=== PATIENT | male | born 1975 | race Caucasian/White ===

== ENCOUNTER 2022-08-09 11:52 | Emergency (ER) | payer BC ==
--- NOTE | 2022-08-09 12:45 | ERPHSYRPT ---
- History of Present Illness Source: patient Exam Limitations: no limitations Patient Subjective Stated Complaint: Pt states that his right arm began to feel heavy last night and then when he woke up this morning he couldn't feel his right arm and couldn't lift it has a hard time thinking of his words and saying them Triage Nursing Assessment: Pt brought to the ER by his family, hypertensive, denies pain, pt states that he had this issue last month and it went away but it wasn't as severe and he did not go to the hospital or doctor, pt has been off of his blood pressure medicines for the past 2 weeks due to the changing of jobs and waiting for his insurance to kick in, pts right arm is weak but his right hand has no feeling and he can not control it at all, pt has problems getting his words correct and reading them correctly, he states that they look backwards to him sometimes (just today), pt has no defecits in his legs or the left arm, pt could not see out of his right side peripherials, pt has slight dizziness and slight headache Physician History: Onset last evening of right side weakness and slurred speech. He had similar s ymptoms last month, did not seek medical care. No hx of CVA. He does have hx HTN and he has been off med for a few weeks, cannot afford the med. Smoker. Time of Onset/Last Time Seen Normal: about 18 hours ago Timing/Duration: yesterday, constant Severity: moderate Character of Deficits: new weakness, altered sensation, impaired speech, Right Facial, RUE Deficits: off balance Baseline/Normal Cognition: alert oriented x 3 Current Cognition: alert oriented x 3 Baseline Gait: walks w/o assistance Associated Symptoms: denies symptoms Allergies/Adverse Reactions: No Known Drug Allergies Allergy (Verified 08/09/22 12:40) Home Medications: Losartan Potassium [Cozaar] 100 mg PO DAILY 08/09/22 [History] Hx Influenza Vaccination/Date Given: No Hx Pneumococcal Vaccination/Date Given: No Travel Risk - International Travel Have you traveled outside of the country in past 3 weeks: No - Coronavirus Screening Are you exhibiting any of the following symptoms?: No Close contact with a COVID-19 positive Pt in past 14-21 Days: No - Vaccine Status Have you recieved a Covid-19 vaccination: No - Review of Systems Constitutional: No Symptoms Eyes: No Symptoms Ears, Nose, & Throat: No Symptoms Respiratory: No Symptoms Cardiac: No Symptoms Abdominal/Gastrointestinal: No Symptoms Genitourinary Symptoms: No Symptoms Musculoskeletal: No Symptoms Skin: No Symptoms Neurological: No Symptoms Psychological: No Symptoms Endocrine: No Symptoms Hematologic/Lymphatic: No Symptoms All Other Systems: Reviewed and Negative - Past Medical History Pertinent Past Medical History: Yes Neurological History: No Pertinent History ENT History: No Pertinent History Cardiac History: Hypertension Respiratory History: No Pertinent History Endocrine Medical History: No Pertinent History Musculoskeletal History: No Pertinent History GI Medical History: No Pertinent History History: No Pertinent History Psycho-Social History: No Pertinent History Male Reproductive Disorders: No Pertinent History - Past Surgical History Past Surgical History: No Neuro Surgical History: No Pertinent History Cardiac: No Pertinent History Respiratory: No Pertinent History Gastrointestinal: No Pertinent History Genitourinary: No Pertinent History Musculoskeletal: No Pertinent History Male Surgical History: No Pertinent History - Social History Smoking Status: Current every day smoker Exposure to second hand smoke: Yes Drug Use: none Patient Lives Alone: No Significant Family History: heart disease, hypertension - Nursing Vital Signs Nursing Vital Signs: Initial Vital Signs Temperature 98.5 F 08/09/22 12:02 Pulse Rate 81 08/09/22 12:02 Respiratory Rate 13 08/09/22 12:02 Blood Pressure 172/104 08/09/22 12:02 O2 Sat by Pulse Oximetry 94 L 08/09/22 12:02 Pain Scale Pain Intensity 0 - Katie Coma Scale Best Eye Response (Katie): (4) open spontaneously Best Verbal Response (Aurelia): (5) oriented Best Motor Response (Katie): (6) obeys commands Katie Total: 15 - Physical Exam General Appearance: no apparent distress, obese Eye Exam: bilateral eye: normal inspection, PERRL, EOMI Ears, Nose, Throat Exam: normal ENT inspection Neck Exam: normal inspection, non-tender Respiratory: normal breath sounds, lungs clear Cardiovascular: regular rate/rhythm, normal heart sounds Gastrointestinal: soft, normal bowel sounds Rectal Exam: deferred Extremity Exam: normal inspection, normal range of motion Mental Status: alert, oriented x 3, 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 Exam: normal hearing, facial asymmetry, facial droop, facial paresthesias, facial weakness Coordination/Gait: normal gait Motor/Sensory: weak motor strength RUE Skin Exam: normal color, warm, dry SpO2 Interpretation: normal SpO2: 94 O2 Delivery: Room Air - Course Nursing assessment & vital signs reviewed: Yes EKG Interpreted by Me: RATE, Sinus Rhythm, NORMAL AXIS, NORMAL INTERVALS, NORMAL QRS, Non-specific ST Changes, Other (Reviewed the EKG with cigar head holer, senior telecommunications technician at [employer] [facility], sent him a picture of it, he says this does not represent acute ischemia, but possible prior ischemic changes in recent past.) - Radiology Exams Chest X-ray Interpretation: Interpreted by me, Negative - CT Exams Head CT Interpretation: Tele-radiologist Report, Other (Ischemic stroke in left MCA distribution. CTA head and neck - no vascular abnormals) Ordered Tests: Active Orders 24 hr Category Date Time Status EKG-ER Only STAT Care 08/09/22 12:47 Active CHEST 1 VIEW (PORTABLE) Stat Exams 08/09/22 13:[address] ANGIOGRAPHY NECK [CT] Routine Exams 08/09/22 14:41 Completed CTA HEAD W AND/OR WO CONTRAST [CT] Stat Exams 08/09/22 14:40 Completed HEAD WITHOUT CONTRAST [CT] Stat Exams 08/09/22 12:02 Completed CBC W DIFF Stat Lab 08/09/22 13:06 Completed CMP Stat Lab 08/09/22 13:06 Completed POCT GLUCOSE Stat Lab 08/09/22 13:49 Completed PROTIME WITH INR Stat Lab 08/09/22 13:06 Completed PTT Stat Lab 08/09/22 13:06 Completed UA W/RFX UR CULTURE Stat Lab 08/09/22 13:20 Completed Medication Summary Discontinued Medications Generic Name Dose Route Start Last Admin Trade Name Debbie PRN Reason Stop Dose Admin Clopidogrel Bisulfate 300 mg 08/09/22 14:11 08/09/22 14:15 Clopidogrel Bisulfate 75 Mg Tablet PO 08/09/22 14:12 300 mg STAT ONE Administration Clopidogrel Bisulfate Confirm 08/09/22 14:13 Clopidogrel Bisulfate 75 Mg Tablet Administered 08/09/22 14:14 Dose 300 mg .ROUTE .STK-MED ONE Lab/Rad Data: Laboratory Result Diagrams 08/09/22 13:06 08/09/22 13:06 Laboratory Results 08/09/22 08/09/22 08/09/22 Range/Units 13:49 13:20 13:06 WBC (4.0-10.5) x10^3/uL RBC (4.1-5.6) x10^6/uL Hgb (12.5-18.0) g/dL Hct (42-50) % MCV (78-100) fL MCH (26-32) pg MCHC (32-36) g/dL RDW (11.5-14.0) % Plt Count (150-450) x10^3/uL MPV (7.5-11.0) fL Gran % (36.0-66.0) % Immature Gran % (Auto) (0.00-0.4) % Nucleat RBC Rel Count (0.00-0.1) % Eos # (Auto) (0-0.5) x10^3/uL Immature Gran # (Auto) (0.00-0.03) x10^3u/L Absolute Lymphs (auto) (1.0-4.6) x10^3/uL Absolute Monos (auto) (0.0-1.3) x10^3/uL Absolute Nucleated RBC (0.00-0.01) x10^3u/L Lymphocytes % (24.0-44.0) % Monocytes % (0.0-12.0) % Eosinophils % (0.00-5.0) % Basophils % (0.0-0.4) % Absolute Granulocytes (1.4-6.9) x10^3/uL Basophils # (0-0.4) x10^3/uL PT 9.4 (9.4-12.5) SECONDS INR 0.85 (0.8-3.0) APTT 25.3 (25.1-36.5) SECONDS Sodium (137-145) mmol/L Potassium (3.5-5.1) mmol/L Chloride (98-107) mmol/L Carbon Dioxide (22-30) mmol/L Anion Gap (5-15) MEQ/L BUN (9-20) mg/dL Creatinine (0.66-1.25) mg/dL Estimated GFR ML/MIN Glucose (74-106) mg/dL POC Glucometer 231 H (74 to 106) mg/dL Calcium (8.4-10.2) mg/dL Total Bilirubin (0.2-1.3) mg/dL AST (17-59) U/L ALT (0-50) U/L Alkaline Phosphatase (38-126) U/L Serum Total Protein (6.3-8.2) g/dL Albumin (3.5-5.0) g/dL Urine Color Yellow (Yellow) Urine Appearance Clear (Clear) Urine pH 7.0 (4.6-8.0) Ur Specific [place] >=1.030 A (1.005-1.030) Urine Protein >=1000 A (Negative) Urine Glucose (UA) >=1000 A (Negative) mg/dL Urine Ketones Negative (Negative) Urine Blood Negative (Negative) Urine Nitrite Negative (Negative) Urine Bilirubin Negative (Negative) Urine Urobilinogen 0.2 (0.2) mg/dL Ur Leukocyte Esterase Negative (Negative) U Hyaline Cast (Auto) NONE SEEN (0-2) /LPF Urine Microscopic RBC 0-2 (0-5) /HPF Urine Microscopic WBC 0-2 (0-5) /HPF Ur Epithelial Cells None Seen (None Seen) /HPF Urine Bacteria None Seen (None Seen) /HPF Urine Culture Reflexed NO (NO) 08/09/22 08/09/22 Range/Units 13:06 13:06 WBC 8.2 (4.0-10.5) x10^3/uL RBC 5.57 (4.1-5.6) x10^6/uL Hgb 16.3 (12.5-18.0) g/dL Hct 48.3 (42-50) % MCV 86.7 (78-100) fL MCH 29.3 (26-32) pg MCHC 33.7 (32-36) g/dL RDW 12.5 (11.5-14.0) % Plt Count 194 (150-450) x10^3/uL MPV 9.3 (7.5-11.0) fL Gran % 61.8 (36.0-66.0) % Immature Gran % (Auto) 0.6 H (0.00-0.4) % Nucleat RBC Rel Count 0.0 (0.00-0.1) % Eos # (Auto) 0.15 (0-0.5) x10^3/uL Immature Gran # (Auto) 0.05 H (0.00-0.03) x10^3u/L Absolute Lymphs (auto) 2.34 (1.0-4.6) x10^3/uL Absolute Monos (auto) 0.54 (0.0-1.3) x10^3/uL Absolute Nucleated RBC 0.00 (0.00-0.01) x10^3u/L Lymphocytes % 28.5 (24.0-44.0) % Monocytes % 6.6 (0.0-12.0) % Eosinophils % 1.8 (0.00-5.0) % Basophils % 0.7 (0.0-0.4) % Absolute Granulocytes 5.08 (1.4-6.9) x10^3/uL Basophils # 0.06 (0-0.4) x10^3/uL PT (9.4-12.5) SECONDS INR (0.8-3.0) APTT (25.1-36.5) SECONDS Sodium 136 L (137-145) mmol/L Potassium 4.5 (3.5-5.1) mmol/L Chloride 104 (98-107) mmol/L Carbon Dioxide 27 (22-30) mmol/L Anion Gap 9.3 (5-15) MEQ/L BUN 16 (9-20) mg/dL Creatinine 0.66 (0.66-1.25) mg/dL Estimated GFR > 60.0 ML/MIN Glucose 243 H (74-106) mg/dL POC Glucometer (74 to 106) mg/dL Calcium 8.5 (8.4-10.2) mg/dL Total Bilirubin 0.30 (0.2-1.3) mg/dL AST 31 (17-59) U/L ALT 27 (0-50) U/L Alkaline Phosphatase 83 (38-126) U/L Serum Total Protein 7.3 (6.3-8.2) g/dL Albumin 3.7 (3.5-5.0) g/dL Urine Color (Yellow) Urine Appearance (Clear) Urine pH (4.6-8.0) Ur Specific [place] (1.005-1.030) Urine Protein (Negative) Urine Glucose (UA) (Negative) mg/dL Urine Ketones (Negative) Urine Blood (Negative) Urine Nitrite (Negative) Urine Bilirubin (Negative) Urine Urobilinogen (0.2) mg/dL Ur Leukocyte Esterase (Negative) U Hyaline Cast (Auto) (0-2) /LPF Urine Microscopic RBC (0-5) /HPF Urine Microscopic WBC (0-5) /HPF Ur Epithelial Cells (None Seen) /HPF Urine Bacteria (None Seen) /HPF Urine Culture Reflexed (NO) - Progress Progress: unchanged Progress Note: 08/09/22 17:25 Acute left brain ischemic (MCA) distribution stroke, right facial and arm weakness. CTA does not reveal any vascular abnormals. Teleneurologist advised us to give plavix 300 mg. Patient had taken ASA at home. Neurologist advised keep sys BP 160-180 range. Onset of sx outside of window for thrombolytics. NIHSS 6, patient recommended to be transferred to a tertiary center by the Regional hospitalist. He is accepted to go to the [facility] ER by Dr. Logan 08/09/22 20:18 Medical Desision Making - Independent Historian Additional History obtained from: Family - Discussion of managment Care discussed with:: specialist (Neurologist Dr. Logan) Reviewed:: Test results Agreed on:: need for follow-up Will see patient: in hospital - Diagnostic Testing Diagnostic test were ordered, analyzed, and reviewed by me: Yes Radiological Interpretation: Reviewed by me, Teleradiologist Report - Risk of complications Low Risk: Low risk of morbidity from additional dx testing or treatment - Departure Departure Disposition: Transfer Clinical Impression: Stroke Qualifiers: CVA mechanism: unspecified Qualified Code(s): I63.9 - Cerebral infarction, unspecified Condition: Stable Critical Care Time: Yes Critical Care Time(excluding separately billable procedures): Critical 30-74 mins Referrals: DOCTOR,NO FAMILY [Primary Care Provider] - Follow up/PCP as directed
--- NOTE | 2022-08-09 12:47 | XRAY ---
CLINICAL HISTORY:unable to move right arm. COMPARISON:None; TECHNIQUES:Axial non-contrast CT scan of the brain was performed from the skull base to the high parietal region. CTDI: 53.92, DLP:1016.25 mGy; FINDINGS: There is ill-defined diffuse hypodensity seen involving the left cerebral hemisphere predominantly the parietal occipital region with effacement of sulci and gyri and loss of abel-white matter differentiation. Imaging findings are suggestive of an ischemic stroke in left cerebral hemisphere in the territory of the left middle cerebral artery. Mild effacement of the ipsilateral lateral ventricle is seen. No midline shifts or deformity. No intracerebral or extra axial hematoma. Normal CT appearance of the posterior fossa structures namely the cerebellar hemispheres, brainstem and cerebellar peduncles. The IACs are unremarkable. The cerebellopontine angles are clear. The pituitary gland, the pineal gland, the optic chiasm is unremarkable. The osseous structures in the skull base are unremarkable. No definite calvarium fractures. The scanned paranasal sinuses are clear. IMPRESSION: 1. Imaging findings are suggestive of ischemic stroke in the left cerebral hemisphere, in the territory of the left middle cerebral artery. Would recommend MRI brain with DWI/ADC mapping, MRV, and clinical correlation for further evaluation. 2. No evidence of hemorrhage was seen. Electronically Signed by: Epi Love MD. (08/09/2022 11:40:34 STOCK PREPARER)
[2022-08-09 13:05] LABS: Absolute Neutrophil Ct (ANC) 5.08 x10^3/uL (1.4-6.9); BASOPHIL % 0.7 % (0.0-0.4); Basophil (Absolute #) 0.06 x10^3/uL (0-0.4); Eosinophil % 1.8 % (0.00-5.0); Eosinophil (Absolute #) 0.15 x10^3/uL (0-0.5); Hematocrit 48.3 % (42-50); Hemoglobin 16.3 g/dL (12.5-18.0); IMMATURE GRAN # 0.05 x10^3u/L (0.00-0.03); IMMATURE GRAN % 0.6 % (0.00-0.4); Lymphocyte (Absolute #) 2.34 x10^3/uL (1.0-4.6); Lymphocytes % 28.5 % (24.0-44.0); Mean Cell Volume 86.7 fL (78-100); Mean Corpuscular Hemoglobin 29.3 pg (26-32); Mean Corpuscular Hgb Concent. 33.7 g/dL (32-36); Mean Platelet Volume 9.3 fL (7.5-11.0); Monocyte (Absolute #) 0.54 x10^3/uL (0.0-1.3); Monocytes % 6.6 % (0.0-12.0); Neutrophil % 61.8 % (36.0-66.0); Platelet Count 194 x10^3/uL (150-450); Red Blood Count 5.57 x10^6/uL (4.1-5.6); Red Cell Distribution Width 12.5 % (11.5-14.0); White Blood Count 8.2 x10^3/uL (4.0-10.5)
[2022-08-09 13:28] LABS: ALBUMIN 3.7 g/dL (3.5-5.0); ALKALINE PHOSPHATASE 83 U/L (38-126); ANION GAP 9.3 MEQ/L (5-15); BLOOD UREA NITROGEN 16 mg/dL (9-20); CHLORIDE 104 mmol/L (98-107); Calcium 8.5 mg/dL (8.4-10.2); Carbon Dioxide 27 mmol/L (22-30); Creatinine 1 0.66 mg/dL (0.66-1.25); EST GLOMERULAR FILTRATION RATE > 60.0 ML/MIN; Glucose 243 mg/dL (74-106); Potassium 4.5 mmol/L (3.5-5.1); SGOT/AST 31 U/L (17-59); SGPT/ALT 27 U/L (0-50); SODIUM 136 mmol/L (137-145); Total Protein 7.3 g/dL (6.3-8.2)
[2022-08-09 13:29] LABS: INR 0.85 (0.8-3.0); PROTIME 9.4 SECONDS (9.4-12.5); PTT 25.3 SECONDS (25.1-36.5)
[2022-08-09 13:52] LABS: Appearance Clear (Clear); Bacteria None Seen /HPF (None Seen); Bilirubin Negative (Negative); Blood Negative (Negative); Epithelial Cells None Seen /HPF (None Seen); Glucose, Urine >=1000 mg/dL (Negative); Hyaline Casts NONE SEEN /LPF (0-2); Ketones Negative (Negative); Leukocyte Esterase Negative (Negative); Nitrite Negative (Negative); Protein,Urine Dip >=1000 (Negative); RBC 0-2 /HPF (0-5); Specific Gravity >=1.030 (1.005-1.030); Urobilinogen 0.2 mg/dL (0.2); WBC 0-2 /HPF (0-5)
[2022-08-09 13:56] LABS: ADD URINE CULTURE? NO (NO)
[2022-08-09] MEDS ORDERED: PLAVIX Tablet PO ONE (14:11)
[2022-08-09] MEDS ORDERED: PLAVIX Tablet ONE (14:13)
--- NOTE | 2022-08-09 16:07 | XRAY ---
CLINICAL HISTORY:STROKE COMPARISON:None; TECHNIQUES:CT angiography of neck performed with IV contrast along with coronal sagittal and 3-D reformatted image. CTDI: 31 mGy, DLP: 731 mGy*cm; FINDINGS: Common origin of right brachiocephalic trunk and left common carotid artery. Left subclavian artery originating normally as left-sided branch of aortic arch. Normal calibre of both common carotid arteries with no aneurysm, high-grade stenosis or AV malformation. Both external carotid arteries are normal in calibre with no no aneurysm, high-grade stenosis or AV malformation. Unremarkable both vertebral arteries. Unremarkable extra cranial course of bilateral internal carotid arteries. Incidentally noted few neck subcentimeter lymph nodes, non specific. Aortic arch appears unremarkable. IMPRESSION: Unremarkable CT angiography of neck with no high-grade stenosis, aneurysm or AV malformation detected. Electronically Signed by: Epi Love MD. (08/09/2022 15:00:51 COMPONENT ENGINEER)
--- NOTE | 2022-08-09 16:07 | XRAY ---
CLINICAL HISTORY:stroke COMPARISON:None; TECHNIQUES:CT angiography of intracranial vessels performed with intravenous contrast with coronal sagittal and 3D reformatted images. CTDI: 31 mGy, DLP: 731 mGy*cm; FINDINGS: In anterior circulation normal course and calibre of both supraclinoid internal carotid arteries with no high-grade stenosis, aneurysmal dilatation or AV malformation. Both anterior and middle cerebral arteries are of normal calibre with no high-grade stenosis, aneurysmal dilatation or AV malformation. Vessels of vertebrobasilar circulation normal calibre with no high-grade stenosis, aneurysmal dilatation or AV malformation. Normal filling of major venous channels with no signs of cerebral venous sinus thrombosis.. IMPRESSION: Unremarkable CT angiography of intracranial vessels with no high-grade stenosis, aneurysmal dilatation or AV malformation in vessels of anterior and posterior circulation. Electronically Signed by: Epi Love MD. (08/09/2022 15:02:44 [employer])
--- NOTE | 2022-08-09 19:39 | XRAY ---
Indication: Chest pain. Comparison: January 19, 2018 Portable apical lordotic chest remains inflated and clear. Heart and mediastinal structures within normal limits. Bony thorax intact again with minimal scoliosis. Impression: Continued nonacute chest.
[2022-08-09 20:08] VITALS: BP 162/113; PULSE 76
[2022-08-09 20:21] VITALS: O2SAT 94
== END 2022-08-09 20:55 | disposition short-term general hospital (02) ==
LOC: ED 11:52
DX: I63.9 Cerebral infarction, unspecified (principal); G81.91 Hemiplegia, unspecified affecting right dominant side; R47.81 Slurred speech; I10 Essential (primary) hypertension; Z79.899 Other long term (current) drug therapy; Z72.0 Tobacco use
CPT/HCPCS: 36415; 70450; 70496; 70498; 71045; 80053; 81001; 82947; 85025; 85610; 85730; 93005; 99285; 99291; A9270-GY

== ENCOUNTER 2024-04-10 06:07 | Observation (INO) | payer BC ==
[2024-04-10 06:51] LABS: Hematocrit 43.3 % (40.1-51.0); Mean Cell Volume 83.8 fL (79.0-92.2); Mean Corpuscular Hgb Concent. 34.6 g/dL (32.3-36.5); Mean Platelet Volume 9.4 fL (9.4-12.4); Platelet Count 255 x10^3/uL (163-337); Red Blood Count 5.17 x10^6/uL (4.63-6.08); Red Cell Distribution Width 12.1 % (11.6-14.4)
[2024-04-10 07:03] LABS: Appearance Clear (Clear); Bacteria None Seen /HPF (None Seen); Bilirubin Negative (Negative); Blood Negative (Negative); Epithelial Cells None Seen /HPF (None Seen); Glucose, Urine >=1000 mg/dL (Negative); Hyaline Casts NONE SEEN /LPF (0-2); Ketones Negative (Negative); Leukocyte Esterase Negative (Negative); Nitrite Negative (Negative); Ph 6.5 (4.6-8.0); Protein,Urine Dip 100 (Negative); RBC 0-2 /HPF (0-5); Specific Gravity >=1.030 (1.005-1.030); Urobilinogen 0.2 mg/dL (0.2); WBC 0-2 /HPF (0-5)
[2024-04-10 07:20] LABS: ALBUMIN 4.2 g/dL (3.5-5.0); ANION GAP 13.4 MEQ/L (5-15); BILIRUBIN,TOTAL 0.4 mg/dL (0.2-1.3); Creatinine 1 0.81 mg/dL (0.66-1.25); EST GLOMERULAR FILTRATION RATE 108.1 ML/MIN; MAGNESIUM 1.8 mg/dL (1.6-2.3); Potassium 4.4 mmol/L (3.5-5.1); Total Protein 7.7 g/dL (6.3-8.2)
--- NOTE | 2024-04-10 08:09 | ERPHSYRPT ---
- History of Present Illness Time Seen by Provider: 04/10/24 07:18 Source: patient Exam Limitations: no limitations Patient Subjective Stated Complaint: Around 3am, right hand started to tighten up and cramp then turned into a seizure that lasted aprox [address] ated she witnessed it. When he came out of his seizure, patient stated that he felt dizziness and light headed. Girlfriend stated that he was having some agonal breathing and was diaphorectic. Triage Nursing Assessment: Around 3am, right hand started to tighten up and cramp then turned into a seizure that lasted aprox 3 mins girlfriend stated she witnessed it. When he came out of his seizure, patient stated that he felt dizziness and light headed. Girlfriend stated that he was having some agonal breathing and was diaphorectic. Physician History: Patient is here for potential seizure-like activity. Girlfriend states that she woke up at 3 AM to him seizing. Patient had a right hand flexed towards him as well as a right elbow flexed towards him with full body tonic-clonic movements. When he came out of his seizure he was postictal. States that he felt dizzy and lightheaded. Girlfriend states that he was having agonal breathing and was diaphoretic. EMS was called. They did arrive on scene. Apparently patient did not want to go to the hospital. However since then he still states he feels "woozy". States he feels like his head is elevated. The room is not spinning, sounds more like lightheadedness than actual vertigo. Patient does not have a history of seizures. He does have a history of TIAs in 2019. He is only on 1 baby aspirin for this. He is not on dual therapy. Patient is taking PO well. Same number of urinations and defecations. The patient has no signs of altered mental status, nuchal rigidity, signs of meningitis. The patient is up-to-date on all vaccinations. Allergies/Adverse Reactions: No Known Drug Allergies Allergy (Verified 04/10/24 06:26) Home Medications: Lisinopril 20 mg [Zestril 20 MG] 20 mg PO DAILY 04/10/24 [History] Hx Tetanus, Diphtheria Vaccination/Date Given: No Hx Influenza Vaccination/Date Given: No Hx Pneumococcal Vaccination/Date Given: No Immunizations Up to Date: No Travel Risk - International Travel Have you traveled outside of the country in past 3 weeks: No - Emerging Infectious Disease Are you exhibiting symptoms associated with any current EIDs: No - Past Medical History Pertinent Past Medical History: Yes Neurological History: Seizures, Stroke ENT History: No Pertinent History Cardiac History: High Cholesterol, Hypertension Respiratory History: No Pertinent History Endocrine Medical History: Diabetes Type II Musculoskeletal History: No Pertinent History GI Medical History: No Pertinent History History: No Pertinent History Psycho-Social History: No Pertinent History Male Reproductive Disorders: No Pertinent History - Past Surgical History Past Surgical History: No Neuro Surgical History: No Pertinent History Cardiac: No Pertinent History Respiratory: No Pertinent History Gastrointestinal: No Pertinent History Genitourinary: No Pertinent History Musculoskeletal: No Pertinent History Male Surgical History: No Pertinent History Significant Family History: heart disease, hypertension - Social History Smoking Status: Current every day smoker How long have you smoked: 30 Exposure to second hand smoke: Yes Drug Use: none Patient Lives Alone: No - Social Determinants of Health Will the patient participate in the screening: Yes Do you worry about a steady place to live?: No Do you have any problems with any of the following?: No known problems In the past 12 months,have you had to go without utilities?: No Transportation Issues: No Has anyone in your support network made you feel unsafe?: No Have you or anyone in your house had to go without enough: No - Nursing Vital Signs Nursing Vital Signs: Initial Vital Signs Temperature 98.1 F 04/10/24 06:08 Pulse Rate 103 H 04/10/24 06:08 Respiratory Rate 20 04/10/24 06:08 Blood Pressure 143/83 04/10/24 06:08 O2 Sat by Pulse Oximetry 93 L 04/10/24 06:08 Pain Scale Pain Intensity 0 - Physical Exam SpO2 Interpretation: normal SpO2: 93 Comments: 04/10/24 08:08 Review of Systems Constitutional: Negative for fever. HENT: Negative for congestion. Respiratory: Negative for shortness of breath. Cardiovascular: Negative for chest pain. Gastrointestinal: Negative for abdominal pain. Genitourinary: Negative for dysuria. Musculoskeletal: Negative for back pain. Skin: Negative for rash. Neurological: Negative for headaches. Psychiatric/Behavioral: Negative for behavioral problems. All other systems reviewed and are negative. Physical Exam Vitals signs and nursing note reviewed. Constitutional: Appearance: Patient is well-developed. HENT: Head: Normocephalic and atraumatic. Eyes: Conjunctiva/sclera: Conjunctivae normal. Neck: Musculoskeletal: Normal range of motion. Trachea: No tracheal deviation. Cardiovascular: Rate and Rhythm: Normal rate. Pulmonary: Effort: Pulmonary effort is normal. No respiratory distress. Abdominal: Palpations: Abdomen is soft. Musculoskeletal: General: No deformity. Skin: General: Skin is warm and dry. Neurological/ Psychiatric: Mental Status: Mental status, behavior, interaction with environment is appropriate for patient's age and condition Motor: There is no pronator drift of out-stretched arms. Muscle bulk and tone a re normal. Strength is full bilaterally. Reflexes: Reflexes are 2+ and symmetric at the biceps, triceps, knees, and ankles. Plantar responses are flexor. Sensory: Light touch sense are intact in bilateral upper and lower extremities. There is no sign of neglect. Coordination: Rapid alternating movements are intact. There is no dysmetria on [id number] and [id number]. There are no abnormal or extraneous movements. Romberg is absent. Gait/Stance: Posture is normal, patient is ambultory without difficuly to bed - Course Nursing assessment & vital signs reviewed: Yes EKG Interpreted by Me: Sinus Rhythm (Sinus rhythm, rate of 94, LA interval 147, QRS 107, QTc is 420, no STEMI, mild ST elevation in V2 no reciprocal changes, half a millimeter) Ordered Tests: Active Orders 24 hr Category Date Time Status Call Admit Doctor for Orders ON ADMISSION Care 04/10/24 09:25 Active Code Status Order ROUTINE Care 04/10/24 09:25 Active EKG-ER Only STAT Care 04/10/24 06:[address] in Observation ROUTINE Care 04/10/24 09:25 Active Telemetry q6h Care 04/10/24 09:25 Active HEAD WITHOUT CONTRAST [CT] Stat Exams 04/10/24 07:19 Completed CBC Stat Lab 04/10/24 06:50 Completed CK-Creatinine Phosphokinase Stat Lab 04/10/24 06:50 Completed CMP Stat Lab 04/10/24 06:50 Completed MAGNESIUM Stat Lab 04/10/24 06:50 Completed TROPONIN Q4H Lab 04/10/24 06:50 Completed TROPONIN Q4H Lab 04/10/24 10:45 Ordered TROPONIN Q4H Lab 04/10/24 14:45 Ordered TROPONIN Q4H Lab 04/10/24 18:45 Ordered TROPONIN Q4H Lab 04/10/24 22:45 Ordered UA W/RFX UR CULTURE Stat Lab 04/10/24 06:45 Completed Lab/Rad Data: Laboratory Result Diagrams 04/10/24 06:50 04/10/24 06:50 Laboratory Results 04/10/24 04/10/24 04/10/24 Range/Units 06:50 06:50 06:50 WBC 14.0 H (4.23-9.07) x10^3/uL RBC 5.17 (4.63-6.08) x10^6/uL Hgb 15.0 (13.7-17.5) g/dL Hct 43.3 (40.1-51.0) % MCV 83.8 (79.0-92.2) fL MCH 29.0 (25.7-32.2) pg MCHC 34.6 (32.3-36.5) g/dL RDW 12.1 (11.6-14.4) % Plt Count 255 (163-337) x10^3/uL MPV 9.4 (9.4-12.4) fL Sodium 134 L (135-145) mmol/L Potassium 4.4 (3.5-5.1) mmol/L Chloride 101 (98-107) mmol/L Carbon Dioxide 24 (22-30) mmol/L Anion Gap 13.4 (5-15) MEQ/L BUN 14 (9-20) mg/dL Creatinine 0.81 (0.66-1.25) mg/dL Estimated GFR 108.1 ML/MIN Glucose 323 H (74-106) mg/dL Calcium 9.0 (8.4-10.2) mg/dL Magnesium 1.8 (1.6-2.3) mg/dL Total Bilirubin 0.40 (0.2-1.3) mg/dL AST 44 (17-59) U/L ALT 40 (0-50) U/L Alkaline Phosphatase 99 (38-126) U/L Creatine Kinase 771 H (55-170) U/L Troponin I < 0.012 (0.000-0.033) ng/mL Serum Total Protein 7.7 (6.3-8.2) g/dL Albumin 4.2 (3.5-5.0) g/dL Urine Color (Yellow) Urine Appearance (Clear) Urine pH (4.6-8.0) Ur Specific [place] (1.005-1.030) Urine Protein (Negative) Urine Glucose (UA) (Negative) mg/dL Urine Ketones (Negative) Urine Blood (Negative) Urine Nitrite (Negative) Urine Bilirubin (Negative) Urine Urobilinogen (0.2) mg/dL Ur Leukocyte Esterase (Negative) U Hyaline Cast (Auto) (0-2) /LPF Urine Microscopic RBC (0-5) /HPF Urine Microscopic WBC (0-5) /HPF Ur Epithelial Cells (None Seen) /HPF Urine Bacteria (None Seen) /HPF Urine Culture Reflexed (NO) 04/10/24 Range/Units 06:45 WBC (4.23-9.07) x10^3/uL RBC (4.63-6.08) x10^6/uL Hgb (13.7-17.5) g/dL Hct (40.1-51.0) % MCV (79.0-92.2) fL MCH (25.7-32.2) pg MCHC (32.3-36.5) g/dL RDW (11.6-14.4) % Plt Count (163-337) x10^3/uL MPV (9.4-12.4) fL Sodium (135-145) mmol/L Potassium (3.5-5.1) mmol/L Chloride (98-107) mmol/L Carbon Dioxide (22-30) mmol/L Anion Gap (5-15) MEQ/L BUN (9-20) mg/dL Creatinine (0.66-1.25) mg/dL Estimated GFR ML/MIN Glucose (74-106) mg/dL Calcium (8.4-10.2) mg/dL Magnesium (1.6-2.3) mg/dL Total Bilirubin (0.2-1.3) mg/dL AST (17-59) U/L ALT (0-50) U/L Alkaline Phosphatase (38-126) U/L Creatine Kinase (55-170) U/L Troponin I (0.000-0.033) ng/mL Serum Total Protein (6.3-8.2) g/dL Albumin (3.5-5.0) g/dL Urine Color Yellow (Yellow) Urine Appearance Clear (Clear) Urine pH 6.5 (4.6-8.0) Ur Specific [place] >=1.030 A (1.005-1.030) Urine Protein 100 A (Negative) Urine Glucose (UA) >=1000 A (Negative) mg/dL Urine Ketones Negative (Negative) Urine Blood Negative (Negative) Urine Nitrite Negative (Negative) Urine Bilirubin Negative (Negative) Urine Urobilinogen 0.2 (0.2) mg/dL Ur Leukocyte Esterase Negative (Negative) U Hyaline Cast (Auto) NONE SEEN (0-2) /LPF Urine Microscopic RBC 0-2 (0-5) /HPF Urine Microscopic WBC 0-2 (0-5) /HPF Ur Epithelial Cells None Seen (None Seen) /HPF Urine Bacteria None Seen (None Seen) /HPF Urine Culture Reflexed NO (NO) - Progress Progress: improved Progress Note: 04/10/24 08:09 Differential diagnosis includes seizure, head bleed, other infection, cardiac event, arrhythmia, NSTEMI, STEMI Will obtain basic labs, EKG, head CT, cardiac markers Patient likely needs to be admitted to hospital 04/10/24 09:[address] negative for acute stroke. Although, patient could benefit from MRI inpatient. First troponin negative, paper is hyperglycemic, history of diabetes. Overall, I do believe patient will need an MRI, echocardiogram, telemetry, neurology and cardiology consult. I did discuss with on-call hospitalist, Dr. Ramirez. He did agree with admission here. Patient's NIH score is 0., Outside of stroke window, I do not believe would benefit from tPA or other acute interventions. History is more in line with seizure or cardiac even t. Although stroke is not fully ruled out at this point. Especially with his history of stroke. Given all this, plan for admission, consults and interventions as above. Counseled pt/family regarding: lab results, diagnosis, need for follow-up, rad results, smoking cessation - Departure Departure Disposition: Observation Clinical Impression: Seizure-like activity, Diaphoresis, Hyperglycemia, Diabetes type 2 Condition: Stable Critical Care Time: No Referrals: WAYNE SHUKLA MD [Primary Care Provider] - Follow up/PCP as directed
--- NOTE | 2024-04-10 08:52 | XRAY ---
Indication: Seizure. History seizures. Multiple contiguous axial images obtained through the head without contrast. Comparison: August 09, 2022 Interval maturation previous left parietal and left occipital lobe infarcts. No acute intracranial hemorrhage, abnormal extra-axial fluid collection, or mass effect. Fourth ventricle is midline without hydrocephalus. Pena-white matter differential preserved. Bony calvarium intact. Visualized paranasal sinuses and mastoid air cells are clear. 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 No acute intracranial abnormalities.
--- NOTE | 2024-04-10 11:46 | PCM.HP ---
History of Present Illness - Chief Complaint Chief Complaint: seizure Date: 04/10/24 History of Present Illness: is a 48 year old male with PMHX of previous seizure x1 but never sought treatment, Hyperlipidemia, HTN, type II DM, and daily smoker. Patient is here for seizure-like activity. Girlfriend (whom is a nurse practitioner) states that she woke up at 3 AM to him seizing, lips turning blue, and foaming at the mouth. Patient had right hand flexed towards him as well as a right elbow flexed towards him with full body tonic-clonic movements. When he came out of his seizure he was postictal. States that he felt dizzy and lightheaded. Girlfriend states that he was having agonal breathing and was diaphoretic. EMS was called. They did arrive on scene. Apparently patient did not want to go to the hospital. However since then he still states he feels "woozy". States he feels like his head is elevated and floating sensation. The room is not spinning, sounds more like lightheadedness than actual vertigo. Patient reports a similar incidnet in January but did not seek treatment. He has no other history of seizures. He does have a history of TIAs in 2019. He is only on 1 baby aspirin for this. He is not on dual therapy. Patient is taking PO well. Same number of urinations and defecations. The patient has no signs of altered mental status, nuchal rigidity, signs of meningitis. The patient is up-to-date on all vaccinations. Neurology consulted. Head CT negative for acute stroke. MRI brain w/o contrast ordered. Echo and PT ordered. He has BLLE edema R>L. He states this is ongoing for 2 months. Venous duploex ordered. He has also been having significant leg cramps daily. Will keep pt overnight and monitor on Tele. He denies CP, SOB, abd. pain, N/V/D. - Review of Systems Constitutional: No Fever, No Chills Eyes: No Symptoms Ears, Nose, & Throat: No Symptoms Respiratory: No Cough, No Short Of Breath Cardiac: Edema (BLLE R>L), No Chest Pain, No Syncope Abdominal/Gastrointestinal: No Abdominal Pain, No Nausea, No Vomiting, No Diarrhea Genitourinary Symptoms: No Dysuria Musculoskeletal: No Back Pain, No Neck Pain Skin: No Rash Neurological: Seizure, No Dizziness, No Focal Weakness, No Sensory Changes Psychological: No Symptoms Endocrine: No Symptoms Hematologic/Lymphatic: No Symptoms Immunological/Allergic: No Symptoms Medications & Allergies Home Medications: Home Medication List Aspirin [Aspirin EC] 81 mg PO DAILY 04/10/24 [History Confirmed 04/10/24] Atorvastatin Calcium 80 mg PO HS 04/10/24 [History Confirmed 04/10/24] Lisinopril 20 mg [Zestril 20 MG] 20 mg PO DAILY 04/10/24 [History Confir med 04/10/24] Semaglutide [Ozempic] 0.25 mg SQ WEEKLY 04/10/24 [History Confirmed 04/10/24] Allergies/Adverse Reactions: Allergies Allergy/AdvReac Type Severity Reaction Status Date / Time No Known Drug Allergies Allergy Verified 04/10/24 06:26 - Past Medical History Past Medical History: Yes Neurological History: Seizures, Stroke ENT History: No Pertinent History Cardiac History: High Cholesterol, Hypertension Respiratory History: No Pertinent History Endocrine Medical History: Diabetes Type II Musculoskelatal History: No Pertinent History GI Medical History: No Pertinent History History: No Pertinent History Pyscho-Social History: No Pertinent History Male Reproductive Disorders: No Pertinent History Comment: ? seizures. questioning on having two recent. Mid January and last night - Past Surgical History Past Surgical History: No Neuro Surgical History: No Pertinent History Cardiac History: No Pertinent History Respiratory Surgery: No Pertinent History GI Surgical History: No Pertinent History Genitourinary Surgical Hx: No Pertinent History Musculskeletal Surgical Hx: No Pertinent History Male Surgical History: No Pertinent History Significant Family History: heart disease, hypertension - Social History Smoking Status: Current every day smoker How long have you smoked: 30 Exposure to second hand smoke: No Alcohol: None Drug Use: none - Social Determinants of Health Will the patient participate in the screening: Yes Do you worry about a steady place to live?: No Do you have any problems with any of the following?: No known problems In the past 12 months,have you had to go without utilities?: No Have you or anyone in your house had to go without enough: No Transportation Issues: No Has anyone in your support network made you feel unsafe?: No Does the patient want assistance with any of the above?: No - Physical Exam Vital Signs: Vital Signs - 24 hr Temp Pulse Resp BP BP BP Pulse Ox 04/10/24 10:00 96.8 F 103 H 18 136/80 92 L 04/10/24 09:50 95 H 18 116/79 94 L 04/10/24 09:49 93 L 04/10/24 09:40 95 04/10/24 09:37 94 L 04/10/24 09:20 95 04/10/24 09:10 96 04/10/24 09:00 95 04/10/24 08:50 93 L 04/10/24 08:40 95 04/10/24 08:30 94 L 04/10/24 07:33 62 16 127/68 94 L 04/10/24 07:11 62 18 129/81 96 04/10/24 06:30 145/87 04/10/24 06:08 98.1 F 103 H 20 143/83 93 L General Appearance: no apparent distress, alert, obese Neurologic Exam: alert, oriented x 3, cooperative, 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 tested, normal mood/affect, nml cerebellar function, nml station & gait, sensation nml, No motor deficits Eye Exam: PERRL/EOMI, eyes nml inspection Ears, Nose, Throat Exam: normal ENT inspection, TMs normal, pharynx normal, moist mucous membranes Neck Exam: normal inspection, non-tender, supple, full range of motion Respiratory Exam: normal breath sounds, lungs clear, No respiratory distress Cardiovascular Exam: regular rate/rhythm, normal heart sounds, normal peripheral pulses Gastrointestinal/Abdomen Exam: soft, normal bowel sounds, No tenderness, No mass Back Exam: normal inspection, normal range of motion, No CVA tenderness, No vertebral tenderness Extremity Exam: normal inspection, normal range of motion, pelvis stable Skin Exam: normal color, warm, dry, No rash Lymphatic Exam: No adenopathy Results - Labs Lab/Micro Results: Lab Results-Last 24 Hours 04/10/24 04/10/24 04/10/24 Range/Units 06:45 06:50 06:50 WBC 14.0 H (4.23-9.07) x10^3/uL RBC 5.17 (4.63-6.08) x10^6/uL Hgb 15.0 (13.7-17.5) g/dL Hct 43.3 (40.1-51.0) % MCV 83.8 (79.0-92.2) fL MCH 29.0 (25.7-32.2) pg MCHC 34.6 (32.3-36.5) g/dL RDW 12.1 (11.6-14.4) % Plt Count 255 (163-337) x10^3/uL MPV 9.4 (9.4-12.4) fL Sodium 134 L (135-145) mmol/L Potassium 4.4 (3.5-5.1) mmol/L Chloride 101 (98-107) mmol/L Carbon Dioxide 24 (22-30) mmol/L Anion Gap 13.4 (5-15) MEQ/L BUN 14 (9-20) mg/dL Creatinine 0.81 (0.66-1.25) mg/dL Estimated GFR 108.1 ML/MIN Glucose 323 H (74-106) mg/dL Calcium 9.0 (8.4-10.2) mg/dL Magnesium 1.8 (1.6-2.3) mg/dL Total Bilirubin 0.40 (0.2-1.3) mg/dL AST 44 (17-59) U/L ALT 40 (0-50) U/L Alkaline Phosphatase 99 (38-126) U/L Creatine Kinase 771 H (55-170) U/L Troponin I (0.000-0.033) ng/mL Serum Total Protein 7.7 (6.3-8.2) g/dL Albumin 4.2 (3.5-5.0) g/dL Urine Color Yellow (Yellow) Urine Appearance Clear (Clear) Urine pH 6.5 (4.6-8.0) Ur Specific [place] >=1.030 A (1.005-1.030) Urine Protein 100 A (Negative) Urine Glucose (UA) >=1000 A (Negative) mg/dL Urine Ketones Negative (Negative) Urine Blood Negative (Negative) Urine Nitrite Negative (Negative) Urine Bilirubin Negative (Negative) Urine Urobilinogen 0.2 (0.2) mg/dL Ur Leukocyte Esterase Negative (Negative) U Hyaline Cast (Auto) NONE SEEN (0-2) /LPF Urine Microscopic RBC 0-2 (0-5) /HPF Urine Microscopic WBC 0-2 (0-5) /HPF Ur Epithelial Cells None Seen (None Seen) /HPF Urine Bacteria None Seen (None Seen) /HPF Urine Culture Reflexed NO (NO) 04/10/24 Range/Units 06:50 WBC (4.23-9.07) x10^3/uL RBC (4.63-6.08) x10^6/uL Hgb (13.7-17.5) g/dL Hct (40.1-51.0) % MCV (79.0-92.2) fL MCH (25.7-32.2) pg MCHC (32.3-36.5) g/dL RDW (11.6-14.4) % Plt Count (163-337) x10^3/uL MPV (9.4-12.4) fL Sodium (135-145) mmol/L Potassium (3.5-5.1) mmol/L Chloride (98-107) mmol/L Carbon Dioxide (22-30) mmol/L Anion Gap (5-15) MEQ/L BUN (9-20) mg/dL Creatinine (0.66-1.25) mg/dL Estimated GFR ML/MIN Glucose (74-106) mg/dL Calcium (8.4-10.2) mg/dL Magnesium (1.6-2.3) mg/dL Total Bilirubin (0.2-1.3) mg/dL AST (17-59) U/L ALT (0-50) U/L Alkaline Phosphatase (38-126) U/L Creatine Kinase (55-170) U/L Troponin I < 0.012 (0.000-0.033) ng/mL Serum Total Protein (6.3-8.2) g/dL Albumin (3.5-5.0) g/dL Urine Color (Yellow) Urine Appearance (Clear) Urine pH (4.6-8.0) Ur Specific [place] (1.005-1.030) Urine Protein (Negative) Urine Glucose (UA) (Negative) mg/dL Urine Ketones (Negative) Urine Blood (Negative) Urine Nitrite (Negative) Urine Bilirubin (Negative) Urine Urobilinogen (0.2) mg/dL Ur Leukocyte Esterase (Negative) U Hyaline Cast (Auto) (0-2) /LPF Urine Microscopic RBC (0-5) /HPF Urine Microscopic WBC (0-5) /HPF Ur Epithelial Cells (None Seen) /HPF Urine Bacteria (None Seen) /HPF Urine Culture Reflexed (NO) - Radiology Impressions Radiology Exams & Impressions: Radiology Procedures Category Date Time Status ECHO W/2D AND DOPPLER [US] Routine Exams 04/10/24 10:23 Ordered HEAD WITHOUT CONTRAST [CT] Stat Exams 04/10/24 07:19 Completed MRI BRAIN W/O CONTRAST [MRI] Routine Exams 04/10/24 10:23 Ordered VENOUS BILATERAL EXTREMITY [US] Routine Exams 04/10/24 11:14 Ordered - Other Procedures and Tests Respiratory Therapy 04/10/24 10:53 Smoking Cessation Education ONCE Assessment/Plan (1) Seizure-like activity Current Visit: Yes Status: Acute Assessment & Plan: - CK 771- NS @ 75ml/hr - CT head: Impression: 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 No acute intracranial abnormalities. - Neurology consult - MRI brain w/o contrast - seizure precautions - tele - Neuro checks Q 4 - CBC, CMP reviewed - UDS - Echo - PT eval Code(s): R56.9 - UNSPECIFIED CONVULSIONS (2) Edema of both lower extremities Current Visit: Yes Status: Acute Assessment & Plan: - ongoing for 2 months per pt R> L - venous duplex BLLE Code(s): R60.0 - LOCALIZED EDEMA (3) HTN (hypertension) Current Visit: Yes Status: Chronic Assessment & Plan: - BP stable - continue lisinopril Code(s): I10 - ESSENTIAL (PRIMARY) HYPERTENSION (4) Hyperlipidemia Current Visit: Yes Status: Chronic Assessment & Plan: - Continue statin Code(s): E78.5 - HYPERLIPIDEMIA, UNSPECIFIED (5) Diabetes type 2 Current Visit: Yes Status: Chronic Assessment & Plan: - Humalog s/s - accuchecks ac/hs - A1C pending - carb consistent diet (6) Hyperglycemia Current Visit: Yes Status: Acute Assessment & Plan: - See above plan for type II DM Code(s): R73.9 - HYPERGLYCEMIA, UNSPECIFIED (7) History of TIA (transient ischemic attack) Current Visit: Yes Status: Chronic Assessment & Plan: - Continue statin and ASA Code(s): Z86.73 - PRSNL HX OF TIA (TIA), AND CEREB INFRC W/O RESID DEFICITS (8) Smoker Current Visit: Yes Status: Chronic Assessment & Plan: - advised cessation - nicotine patch Code(s): F17.200 - NICOTINE DEPENDENCE, UNSPECIFIED, UNCOMPLICATED (9) Obesity (BMI 30-39.9) Current Visit: Yes Status: Chronic Assessment & Plan: - advised ADA diet and exercise control VTE: Lovenox Next of KIN: Sibling- Jenn Nino [phone] D/C plan: tomorrow Code status: Full Code(s): E66.9 - OBESITY, UNSPECIFIED
[2024-04-10] MEDS: Nicoderm CQ 21 MG TOP SCH (12:35)
[2024-04-10] MEDS: Sodium Chloride 0.9% 1000 ML 1,000 ML IV SCH (12:35)
[2024-04-10] MEDS: Zestril 20 MG PO SCH (12:35)
[2024-04-10] MEDS: HUMALOG SQ PRN (12:40)
--- NOTE | 2024-04-10 14:18 | XRAY ---
Indication: Bilateral leg edema. Two-dimensional sonogram and color Doppler imaging major venous vessels left and right leg performed. Comparison: None Right leg demonstrates near occluding thrombi in popliteal vein. Lesser degree nonoccluding thrombi in mid to distal femoral vein. No thrombus seen in the remaining deep venous vessels left and right leg including greater saphenous vein. Patent veins demonstrate normal compressibility and normal venous waveforms. Impression: 1. Nonoccluding DVT right leg. 2. Left leg negative for DVT.
--- NOTE | 2024-04-10 14:54 | XRAY ---
Indication: TIA. Old left parietal/occipital lobe infarcts on same day CT head. Sagittal, coronal, and axial MRI brain performed without contrast using T1, T2, FLAIR, diffusion, and ADC sequences. Comparison: None Small focus of encephalomalacia left occipital lobe and lesser degree high left parietal with surrounding gliosis favoring remote infarcts. No acute intra-cranial hemorrhage, abnormal extra-axial fluid collection, or mass effect. Diffusion images negative for restricted signal. Fourth ventricle is midline without hydrocephalus. 7/8 cranial nerve complex bilaterally symmetric. Normal flow void signal within the major intracerebral circulation. Normal appearing craniocervical junction and sella turcica. Minimal mucosal thickening inferior left maxillary sinus. Impression: Small remote infarcts left parietal and left occipital lobes as reported on same-day CT exam. Minimal left maxillary sinus disease. Remaining MRI brain without contrast exam negative.
[2024-04-10] MEDS: ENOXAPARIN SODIUM SQ SCH (16:03)
[2024-04-10 17:00] LABS: Amphetamine,Urine NEGATIVE (NEGATIVE); Barbiturate,Urine NEGATIVE (NEGATIVE); Benzodiazepine,Urine NEGATIVE (NEGATIVE); Cocaine,Urine NEGATIVE (NEGATIVE); Methadone,Urine NEGATIVE (NEGATIVE); Opiate,Urine NEGATIVE (NEGATIVE); PCP,Urine NEGATIVE (NEGATIVE); THC,Urine NEGATIVE (NEGATIVE)
[2024-04-10] MEDS: ZOCOR 20MG PO SCH (22:33)
[2024-04-11 06:00] LABS: Hematocrit 48.4 % (40.1-51.0); Hemoglobin 15.9 g/dL (13.7-17.5); Mean Cell Volume 87.8 fL (79.0-92.2); Mean Corpuscular Hemoglobin 28.9 pg (25.7-32.2); Mean Corpuscular Hgb Concent. 32.9 g/dL (32.3-36.5); Mean Platelet Volume 9.8 fL (9.4-12.4); Platelet Count 270 x10^3/uL (163-337); Red Blood Count 5.51 x10^6/uL (4.63-6.08); Red Cell Distribution Width 12.3 % (11.6-14.4); White Blood Count 8.6 x10^3/uL (4.23-9.07)
[2024-04-11 07:18] LABS: ANION GAP 10.7 MEQ/L (5-15); BILIRUBIN,TOTAL 0.4 mg/dL (0.2-1.3); Calcium 9.3 mg/dL (8.4-10.2); Creatinine 1 0.97 mg/dL (0.66-1.25); EST GLOMERULAR FILTRATION RATE 95.7 ML/MIN; Potassium 4.5 mmol/L (3.5-5.1); Total Protein 7.5 g/dL (6.3-8.2)
[2024-04-11 08:06] VITALS: RESP 19; TEMP 97.6; O2SAT 97
--- NOTE | 2024-04-11 09:19 | PCM.CONS ---
History of Present Illness - Neuro Consultation Date of Consultation Date: 04/11/24 ED Arrival Date & Time: 04/10/24 06:07 Requesting Provider: Mavis Jackson NP Providers: Attending Provider: JACOB NGUYEN MD ED Provider: PATRIC PALOMO Consulting Provider: PORTILLO SOLIMAN DO Reason for Consult: Seizure cc:: The requesting physician will be sent a copy of the consult. Seizure - Chief Complaint Patient Subjective Stated Complaint: Seizure - History of Present Illness HPI: The patient is a 48M PMH stroke x2 mild right hand weakness residually, DM, HTN, HLD, tobacco use presents with seizure. In the middle of the night he had an episode where he woke up, his right arm was jerking for 20s, then he had LOC with GTC activity for minutes, afterwards was agonal breathing and somnolent for 20min per his partner. He woke up after but was confused. He had a similar episode in January, did not seen medical attention. No personal or FH seizures. No prior head trauma. He did have 2 strokes in the past few years, was told it was due to HTN, HLD but they never found a cause for embolism. Currently on ASA daily, no other blood thinner. MRI brain obtained showed chronic left parietal-occipital stroke. US of legs showed right leg DVT x2. Now on Lovenox treatment dose. No hx blood clots, of FH clotting disorders. Also denies any daily alcohol use, recent infections, poor sleep. 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 Location: Brain Quality: Seizure Severity: Severe Timing: Intermittent Duration: 30min Modifying: none Associated symptoms: somnolent, confusion Context: chronic left embolic stroke Known stroke risk factors:: Hypertension, Dyslipidemia Review of Systems - Review of Systems Review of Systems (Narrative): Constitutional: No fever/chills, no weight loss/gain Eyes: No double vision ENT: No hearing loss/tinnitus, no nasal congestion Cardiovascular: No chest pain, no palpitations Respiratory: No shortness of breath, no cough Gastrointestinal: No nausea/vomiting, no diarrhea Genitourinary: No urinary incontinence, no urinary difficulty Musculoskeletal: no neck pain, no muscle cramps Skin: No rashes, no abrasions Neurological: no numbness, no weakness Psychiatric: No depression, no anxiety Endocrine: No heat or cold intolerance, no change in appetite Hematologic/Lymphatic: No easy bruising, no anemia Allergic/Immunologic: No allergic response to food, no swollen lymph nodes - Past Medical History Past Medical History: Yes Neurological History: Seizures, Stroke ENT History: No Pertinent History Cardiac History: High Cholesterol, Hypertension Respiratory History: No Pertinent History Endocrine Medical History: Diabetes Type II Musculoskelatal History: No Pertinent History GI Medical History: No Pertinent History History: No Pertinent History Pyscho-Social History: No Pertinent History Male Reproductive Disorders: No Pertinent History Comment: ? seizures. questioning on having two recent. Mid January and last night - Past Surgical History Past Surgical History: No Neuro Surgical History: No Pertinent History Cardiac History: No Pertinent History Respiratory Surgery: No Pertinent History GI Surgical History: No Pertinent History Genitourinary Surgical Hx: No Pertinent History Musculskeletal Surgical Hx: No Pertinent History Male Surgical History: No Pertinent History Significant Family History: heart disease, hypertension - Social History Smoking Status: Current every day smoker How long have you smoked: 30 Exposure to second hand smoke: No Alcohol: None Drug Use: none - Social Determinants of Health Will the patient participate in the screening: Yes Do you worry about a steady place to live?: No Do you have any problems with any of the following?: No known problems In the past 12 months,have you had to go without utilities?: No Have you or anyone in your house had to go without enough: No Transportation Issues: No Has anyone in your support network made you feel unsafe?: No Does the patient want assistance with any of the above?: No Physical Exam - Vital Signs Vital Signs: Vital Signs - 24 hr 04/10/24 04/10/24 04/10/24 09:20 09:37 09:40 Temperature Pulse Rate Respiratory Rate Blood Pressure Blood Pressure [Right Arm] O2 Sat by Pulse 95 94 L 95 Oximetry 04/10/24 04/10/24 04/10/24 09:49 09:50 10:00 Temperature 96.8 F Pulse Rate 95 H 103 H Respiratory 18 18 Rate Blood Pressure 116/79 Blood Pressure 136/80 [Right Arm] O2 Sat by Pulse 93 L 94 L 92 L Oximetry 04/10/24 04/10/24 04/11/24 16:00 19:27 00:00 Temperature 97.6 F 97 F 98.1 F Pulse Rate 84 88 72 Respiratory 18 25 H 24 Rate Blood Pressure Blood Pressure 113/59 121/58 102/60 [Right Arm] O2 Sat by Pulse 96 96 94 L Oximetry 04/11/24 04/11/24 04:00 08:00 Temperature 96.8 F 97.6 F Pulse Rate 84 69 Respiratory 16 19 Rate Blood Pressure Blood Pressure 109/58 135/73 [Right Arm] O2 Sat by Pulse 92 L 97 Oximetry - Physical Exam General: no acute distress Mental Status: alert, awake and oriented, no dysarthria Cranial nerves: extra ocular movements intact, sensation intact, face is symmetric, hearing intact, trapezii intact strong, tongue midline, + Blink Motor: antigravity in all 4 ext, no drift noted Sens:: intact to touch in all 4 Movement:: no tremors noted MSR:: unable to assess through telemedicine, no clonus noted. Gait: deferred - NIHSS Stroke Scale Date Completed: 08/09/22 Time Stroke Scale Completed: 12:09 Results - Labs Lab/Micro Results: Lab Results-Last 24 Hours 04/10/24 04/10/24 04/10/24 Range/Units 11:53 12:23 15:12 WBC (4.23-9.07) x10^3/uL RBC (4.63-6.08) x10^6/uL Hgb (13.7-17.5) g/dL Hct (40.1-51.0) % MCV (79.0-92.2) fL MCH (25.7-32.2) pg MCHC (32.3-36.5) g/dL RDW (11.6-14.4) % Plt Count (163-337) x10^3/uL MPV (9.4-12.4) fL Sodium (135-145) mmol/L Potassium (3.5-5.1) mmol/L Chloride (98-107) mmol/L Carbon Dioxide (22-30) mmol/L Anion Gap (5-15) MEQ/L BUN (9-20) mg/dL Creatinine (0.66-1.25) mg/dL Estimated GFR ML/MIN Glucose (74-106) mg/dL POC Glucometer 217 H (74 to 106) mg/dL Hemoglobin A1c (4.5-6.0) % Calcium (8.4-10.2) mg/dL Magnesium (1.6-2.3) mg/dL Total Bilirubin (0.2-1.3) mg/dL AST (17-59) U/L ALT (0-50) U/L Alkaline Phosphatase (38-126) U/L Creatine Kinase (55-170) U/L Troponin I < 0.012 < 0.012 (0.000-0.033) ng/mL Serum Total Protein (6.3-8.2) g/dL Albumin (3.5-5.0) g/dL Urine Opiates Level (NEGATIVE) Ur Methadone (NEGATIVE) Urine Barbiturates (NEGATIVE) Ur Phencyclidine (PCP) (NEGATIVE) Urine Amphetamine (NEGATIVE) U Benzodiazepine Level (NEGATIVE) Urine Cocaine (NEGATIVE) Urine Marijuana (THC) (NEGATIVE) 04/10/24 04/10/24 04/10/24 Range/Units 15:55 17:13 20:53 WBC (4.23-9.07) x10^3/uL RBC (4.63-6.08) x10^6/uL Hgb (13.7-17.5) g/dL Hct (40.1-51.0) % MCV (79.0-92.2) fL MCH (25.7-32.2) pg MCHC (32.3-36.5) g/dL RDW (11.6-14.4) % Plt Count (163-337) x10^3/uL MPV (9.4-12.4) fL Sodium (135-145) mmol/L Potassium (3.5-5.1) mmol/L Chloride (98-107) mmol/L Carbon Dioxide (22-30) mmol/L Anion Gap (5-15) MEQ/L BUN (9-20) mg/dL Creatinine (0.66-1.25) mg/dL Estimated GFR ML/MIN Glucose (74-106) mg/dL POC Glucometer 282 H 273 H 194 H (74 to 106) mg/dL Hemoglobin A1c (4.5-6.0) % Calcium (8.4-10.2) mg/dL Magnesium (1.6-2.3) mg/dL Total Bilirubin (0.2-1.3) mg/dL AST (17-59) U/L ALT (0-50) U/L Alkaline Phosphatase (38-126) U/L Creatine Kinase (55-170) U/L Troponin I (0.000-0.033) ng/mL Serum Total Protein (6.3-8.2) g/dL Albumin (3.5-5.0) g/dL Urine Opiates Level (NEGATIVE) Ur Methadone (NEGATIVE) Urine Barbiturates (NEGATIVE) Ur Phencyclidine (PCP) (NEGATIVE) Urine Amphetamine (NEGATIVE) U Benzodiazepine Level (NEGATIVE) Urine Cocaine (NEGATIVE) Urine Marijuana (THC) (NEGATIVE) 04/10/24 04/11/24 04/11/24 Range/Units Unknown 05:49 05:49 WBC 8.6 (4.23-9.07) x10^3/uL RBC 5.51 (4.63-6.08) x10^6/uL Hgb 15.9 (13.7-17.5) g/dL Hct 48.4 (40.1-51.0) % MCV 87.8 (79.0-92.2) fL MCH 28.9 (25.7-32.2) pg MCHC 32.9 (32.3-36.5) g/dL RDW 12.3 (11.6-14.4) % Plt Count 270 (163-337) x10^3/uL MPV 9.8 (9.4-12.4) fL Sodium 136 (135-145) mmol/L Potassium 4.5 (3.5-5.1) mmol/L Chloride 102 (98-107) mmol/L Carbon Dioxide 28 (22-30) mmol/L Anion Gap 10.7 (5-15) MEQ/L BUN 18 (9-20) mg/dL Creatinine 0.97 (0.66-1.25) mg/dL Estimated GFR 95.7 ML/MIN Glucose 326 H (74-106) mg/dL POC Glucometer (74 to 106) mg/dL Hemoglobin A1c (4.5-6.0) % Calcium 9.3 (8.4-10.2) mg/dL Magnesium 2.0 (1.6-2.3) mg/dL Total Bilirubin 0.40 (0.2-1.3) mg/dL AST 47 (17-59) U/L ALT 37 (0-50) U/L Alkaline Phosphatase 86 (38-126) U/L Creatine Kinase 769 H (55-170) U/L Troponin I (0.000-0.033) ng/mL Serum Total Protein 7.5 (6.3-8.2) g/dL Albumin 4.0 (3.5-5.0) g/dL Urine Opiates Level NEGATIVE (NEGATIVE) Ur Methadone NEGATIVE (NEGATIVE) Urine Barbiturates NEGATIVE (NEGATIVE) Ur Phencyclidine (PCP) NEGATIVE (NEGATIVE) Urine Amphetamine NEGATIVE (NEGATIVE) U Benzodiazepine Level NEGATIVE (NEGATIVE) Urine Cocaine NEGATIVE (NEGATIVE) Urine Marijuana (THC) NEGATIVE (NEGATIVE) 04/11/24 04/11/24 Range/Units 05:49 07:59 WBC (4.23-9.07) x10^3/uL RBC (4.63-6.08) x10^6/uL Hgb (13.7-17.5) g/dL Hct (40.1-51.0) % MCV (79.0-92.2) fL MCH (25.7-32.2) pg MCHC (32.3-36.5) g/dL RDW (11.6-14.4) % Plt Count (163-337) x10^3/uL MPV (9.4-12.4) fL Sodium (135-145) mmol/L Potassium (3.5-5.1) mmol/L Chloride (98-107) mmol/L Carbon Dioxide (22-30) mmol/L Anion Gap (5-15) MEQ/L BUN (9-20) mg/dL Creatinine (0.66-1.25) mg/dL Estimated GFR ML/MIN Glucose (74-106) mg/dL POC Glucometer 265 H (74 to 106) mg/dL Hemoglobin A1c 9.49 H (4.5-6.0) % Calcium (8.4-10.2) mg/dL Magnesium (1.6-2.3) mg/dL Total Bilirubin (0.2-1.3) mg/dL AST (17-59) U/L ALT (0-50) U/L Alkaline Phosphatase (38-126) U/L Creatine Kinase (55-170) U/L Troponin I (0.000-0.033) ng/mL Serum Total Protein (6.3-8.2) g/dL Albumin (3.5-5.0) g/dL Urine Opiates Level (NEGATIVE) Ur Methadone (NEGATIVE) Urine Barbiturates (NEGATIVE) Ur Phencyclidine (PCP) (NEGATIVE) Urine Amphetamine (NEGATIVE) U Benzodiazepine Level (NEGATIVE) Urine Cocaine (NEGATIVE) Urine Marijuana (THC) (NEGATIVE) Accuchecks Date 04/11/24 Date 04/10/24 Time 08:05 Time 16:10 - Radiology Orders Radiology Orders: Radiology Procedures Category Date Time Status ECHO W/2D AND DOPPLER [US] Routine Exams 04/10/24 10:23 Taken HEAD WITHOUT CONTRAST [CT] Stat Exams 04/10/24 07:19 Completed MRI BRAIN W/O CONTRAST [MRI] Routine Exams 04/10/24 10:23 Completed VENOUS BILATERAL EXTREMITY [US] Routine Exams 04/10/24 11:14 Completed - CT Impressions CT Head w/o contrast Status: image reviewed by me (left parietal-occipital encephalomalacia) - MRI Impressions MRI brain w/o contrast Status: image reviewed by me (chronic left parietal-occipital stroke) Impressions & Recommendations - Impression Acute Ischemic Stroke: No acute stroke - ED Arrival Time ED Arrival Date & Time: ED Arrival Date and Time 04/10/24 06:07 Last known well time: - NIHSS Is patient an IV TPA candidate (if no specify reason): No If not, specify reason:: No stroke symptoms Is patient a thrombectomy candidate:: No IV Thrombolysis Standard of Care: IV thrombolysis as a standard of care in acute stroke discussed with PATRIC PALOMO. Risk, benefits, and options of IV thrombolytic therapy for acute ischemic stroke were discussed with the patient/family KRYSTLE HOLMAN. We discussed that use of IV tenecteplase is in line with national stroke guidelines. We discussed that risks of IV thrombolytic use include intracranial hemorrhage, other fatal bleeding risks, and angioedema. Alternatives of t reatment, including not proceeding with thrombolytic therapy were discussed. - Recommendations Recommendations: 48yo male PMH stroke x2 wih mild right hand weakness residually, HTN, HLD, smoking presents with seizure. Right arm shaking followed by GTC activity, second time this has happened in the past few months. 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 No known provoking factors. Will need anti-seizure medication. Chronic left parietal-occipital stroke appears embolic, now cryptogenic. On ASA daily. US of legs with DVT here, now on anticoagulation. TTE performed here but they do not performed bubble to look for PFO. Considerations include occult Afib, PFO, clotting disorder, cryptogenic. Recommendations: -No further inpatient neurologic workup -Start Keppra 500mg BID -Routine EEG as outpatient is fine -Can discontinue ASA while he is on anticoagulation for DVT, if this is stopped then he should resume ASA 81mg qd -Continue home Simvistatin -Cardiology follow up as outpatient for Holter monitor and TTE w/ bubble to eval for PFO -Hematology follow up as outpatient for workup given unprovoked DVTs -Neurology follow up as outpatient within 1-2 weeks for new epilepsy -Discussed no set time for driving restriction in [place], but most states have at least a 3-6 month period of no driving after last seizure due to risk. 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 May need to consider leave. Neurology will sign off at this time, please call us with any questions or concerns. Plan discussed with primary, Mavis Jackson NP. Thank you for allowing us to participate in this patient's care. Please call [facility] with questions, concerns, or change in patient's neurological status. This consult was performed via secure telemedicine audio/visual platform with RN assisting at bedside. Patient identity verified and consent obtained. Assessment & Plan (1) Focal seizure Current Visit: Yes Status: Acute (2) Diabetes type 2 Current Visit: Yes Status: Chronic (3) HTN (hypertension) Current Visit: Yes Status: Chronic Code(s): I10 - ESSENTIAL (PRIMARY) HYPERTENSION (4) Chronic arterial ischemic stroke Current Visit: Yes Status: Acute Code(s): Z86.73 - PRSNL HX OF TIA (TIA), AND CEREB INFRC W/O RESID DEFICITS (5) DVT (deep venous thrombosis) Current Visit: Yes Status: Acute Code(s): I82.409 - ACUTE EMBOLISM AND THOMBOS UNSP DEEP VN UNSP LOWER EXTREMITY (6) Smoker Current Visit: Yes Status: Acute Code(s): F17.200 - NICOTINE DEPENDENCE, UNSPECIFIED, UNCOMPLICATED (7) Smoker Current Visit: Yes Status: Chronic Code(s): F17.200 - NICOTINE DEPENDENCE, UNSPECIFIED, UNCOMPLICATED - Encounter Encounter: "The entirety of this encounter was performed via Telemedicine using audio and visual "
[2024-04-11] MEDS ORDERED: ENOXAPARIN SODIUM SQ SCH (10:00)
[2024-04-11] MEDS: KEPPRA PO SCH (11:03)
[2024-04-11] MEDS: ECOTRIN 81 MG PO SCH (11:10)
[2024-04-11] MEDS: ZOFRAN ODT 4 MG PO ONE (11:38)
--- NOTE | 2024-04-11 11:44 | PCM.DS ---
Discharge Summary Date of Admission: 04/10/24 10:11 Date of Discharge: 04/11/24 Admitting Physician: JACOB NGUYEN MD Consults: Consults on Case 04/10/24 10:22 Consult Neurology ROUTINE Primary Care Provider: WAYNE SHUKLA Allergies Allergies No Known Drug Allergies Allergy (Verified 04/10/24 06:26) Hospital Summary - Hospital Course Hospital Course: 04/10/24 is a 48 year old male with PMHX of previous seizure x1 but never sought treatment, Hyperlipidemia, HTN, type II DM, and daily smoker. Patient is here for seizure-like activity. Girlfriend (whom is a nurse practit ioner) states that she woke up at 3 AM to him seizing, lips turning blue, and foaming at the mouth. Patient had right hand flexed towards him as well as a right elbow flexed towards him with full body tonic-clonic movements. When he came out of his seizure he was postictal. States that he felt dizzy and lightheaded. Girlfriend states that he was having agonal breathing and was diaphoretic. EMS was called. They did arrive on scene. Apparently patient did not want to go to the hospital. However since then he still states he feels "woozy". States he feels like his head is elevated and floating sensation. The room is not spinning, sounds more like lightheadedness than actual vertigo. Debby castro reports a similar incidnet in January but did not seek treatment. He has no other history of seizures. He does have a history of TIAs in 2019. He is only on 1 baby aspirin for this. He is not on dual therapy. Patient is taking PO well. Same number of urinations and defecations. The patient has no signs of altered mental status, nuchal rigidity, signs of meningitis. The patient is up-to-date on all vaccinations. Neurology consulted. Head CT negative for acute stroke. MRI brain w/o contrast ordered. Echo and PT ordered. He has BLLE edema R>L. He states this is ongoing for 2 months. Venous duploex ordered. He has also been having significant leg cramps daily. Will keep pt overnight and monitor on Tele. He denies CP, SOB, abd. pain, N/V/D. 04/11/24 Pt resting in the chair. He states he is ready to d/c today. Neurology consulted and recomended luisra BID, cardiology, neurology, and hematology OP f/u. appointments made. Pt will call PCP and explained he will need blood work done by the end of the week. Clair started BID today. Case mangement checking on cost. Holter monitor set up by RT x7 days. Pt on a driving restriction and will need to f/u with neurology as to when can drive again. Pt will need OP f/u for better glucose control with PCP. He denies CP, SOB, abd pain, N/V/D. He has not had any seizures since admission. - Vitals & Intake/Output Vital Signs: Vital Signs Temperature 97.6 F 04/11/24 08:00 Pulse Rate 69 04/11/24 08:00 Respiratory Rate 19 04/11/24 08:00 Blood Pressure 135/73 04/11/24 08:00 O2 Sat by Pulse Oximetry 97 04/11/24 08:00 Intake & Output: Intake & Output 04/08/24 04/09/24 04/10/24 04/11/24 11:59 11:59 11:59 11:59 Intake Total 600 Balance 600 Weight 125.1 kg - Lab Result Diagrams: 04/11/24 05:49 04/11/24 05:49 Lab Results-Last 24 Hrs: Lab Results-Last 24 Hours 04/10/24 04/10/24 04/10/24 Range/Units 11:53 12:23 15:12 WBC (4.23-9.07) x10^3/uL RBC (4.63-6.08) x10^6/uL Hgb (13.7-17.5) g/dL Hct (40.1-51.0) % MCV (79.0-92.2) fL MCH (25.7-32.2) pg MCHC (32.3-36.5) g/dL RDW (11.6-14.4) % Plt Count (163-337) x10^3/uL MPV (9.4-12.4) fL Sodium (135-145) mmol/L Potassium (3.5-5.1) mmol/L Chloride (98-107) mmol/L Carbon Dioxide (22-30) mmol/L Anion Gap (5-15) MEQ/L BUN (9-20) mg/dL Creatinine (0.66-1.25) mg/dL Estimated GFR ML/MIN Glucose (74-106) mg/dL POC Glucometer 217 H (74 to 106) mg/dL Hemoglobin A1c (4.5-6.0) % Calcium (8.4-10.2) mg/dL Magnesium (1.6-2.3) mg/dL Total Bilirubin (0.2-1.3) mg/dL AST (17-59) U/L ALT (0-50) U/L Alkaline Phosphatase (38-126) U/L Creatine Kinase (55-170) U/L Troponin I < 0.012 < 0.012 (0.000-0.033) ng/mL Serum Total Protein (6.3-8.2) g/dL Albumin (3.5-5.0) g/dL Urine Opiates Level (NEGATIVE) Ur Methadone (NEGATIVE) Urine Barbiturates (NEGATIVE) Ur Phencyclidine (PCP) (NEGATIVE) Urine Amphetamine (NEGATIVE) U Benzodiazepine Level (NEGATIVE) Urine Cocaine (NEGATIVE) Urine Marijuana (THC) (NEGATIVE) 04/10/24 04/10/24 04/10/24 Range/Units 15:55 17:13 20:53 WBC (4.23-9.07) x10^3/uL RBC (4.63-6.08) x10^6/uL Hgb (13.7-17.5) g/dL Hct (40.1-51.0) % MCV (79.0-92.2) fL MCH (25.7-32.2) pg MCHC (32.3-36.5) g/dL RDW (11.6-14.4) % Plt Count (163-337) x10^3/uL MPV (9.4-12.4) fL Sodium (135-145) mmol/L Potassium (3.5-5.1) mmol/L Chloride (98-107) mmol/L Carbon Dioxide (22-30) mmol/L Anion Gap (5-15) MEQ/L BUN (9-20) mg/dL Creatinine (0.66-1.25) mg/dL Estimated GFR ML/MIN Glucose (74-106) mg/dL POC Glucometer 282 H 273 H 194 H (74 to 106) mg/dL Hemoglobin A1c (4.5-6.0) % Calcium (8.4-10.2) mg/dL Magnesium (1.6-2.3) mg/dL Total Bilirubin (0.2-1.3) mg/dL AST (17-59) U/L ALT (0-50) U/L Alkaline Phosphatase (38-126) U/L Creatine Kinase (55-170) U/L Troponin I (0.000-0.033) ng/mL Serum Total Protein (6.3-8.2) g/dL Albumin (3.5-5.0) g/dL Urine Opiates Level (NEGATIVE) Ur Methadone (NEGATIVE) Urine Barbiturates (NEGATIVE) Ur Phencyclidine (PCP) (NEGATIVE) Urine Amphetamine (NEGATIVE) U Benzodiazepine Level (NEGATIVE) Urine Cocaine (NEGATIVE) Urine Marijuana (THC) (NEGATIVE) 04/10/24 04/11/24 04/11/24 Range/Units Unknown 05:49 05:49 WBC 8.6 (4.23-9.07) x10^3/uL RBC 5.51 (4.63-6.08) x10^6/uL Hgb 15.9 (13.7-17.5) g/dL Hct 48.4 (40.1-51.0) % MCV 87.8 (79.0-92.2) fL MCH 28.9 (25.7-32.2) pg MCHC 32.9 (32.3-36.5) g/dL RDW 12.3 (11.6-14.4) % Plt Count 270 (163-337) x10^3/uL MPV 9.8 (9.4-12.4) fL Sodium 136 (135-145) mmol/L Potassium 4.5 (3.5-5.1) mmol/L Chloride 102 (98-107) mmol/L Carbon Dioxide 28 (22-30) mmol/L Anion Gap 10.7 (5-15) MEQ/L BUN 18 (9-20) mg/dL Creatinine 0.97 (0.66-1.25) mg/dL Estimated GFR 95.7 ML/MIN Glucose 326 H (74-106) mg/dL POC Glucometer (74 to 106) mg/dL Hemoglobin A1c (4.5-6.0) % Calcium 9.3 (8.4-10.2) mg/dL Magnesium 2.0 (1.6-2.3) mg/dL Total Bilirubin 0.40 (0.2-1.3) mg/dL AST 47 (17-59) U/L ALT 37 (0-50) U/L Alkaline Phosphatase 86 (38-126) U/L Creatine Kinase 769 H (55-170) U/L Troponin I (0.000-0.033) ng/mL Serum Total Protein 7.5 (6.3-8.2) g/dL Albumin 4.0 (3.5-5.0) g/dL Urine Opiates Level NEGATIVE (NEGATIVE) Ur Methadone NEGATIVE (NEGATIVE) Urine Barbiturates NEGATIVE (NEGATIVE) Ur Phencyclidine (PCP) NEGATIVE (NEGATIVE) Urine Amphetamine NEGATIVE (NEGATIVE) U Benzodiazepine Level NEGATIVE (NEGATIVE) Urine Cocaine NEGATIVE (NEGATIVE) Urine Marijuana (THC) NEGATIVE (NEGATIVE) 04/11/24 04/11/24 04/11/24 Range/Units 05:49 07:59 10:56 WBC (4.23-9.07) x10^3/uL RBC (4.63-6.08) x10^6/uL Hgb (13.7-17.5) g/dL Hct (40.1-51.0) % MCV (79.0-92.2) fL MCH (25.7-32.2) pg MCHC (32.3-36.5) g/dL RDW (11.6-14.4) % Plt Count (163-337) x10^3/uL MPV (9.4-12.4) fL Sodium (135-145) mmol/L Potassium (3.5-5.1) mmol/L Chloride (98-107) mmol/L Carbon Dioxide (22-30) mmol/L Anion Gap (5-15) MEQ/L BUN (9-20) mg/dL Creatinine (0.66-1.25) mg/dL Estimated GFR ML/MIN Glucose (74-106) mg/dL POC Glucometer 265 H 244 H (74 to 106) mg/dL Hemoglobin A1c 9.49 H (4.5-6.0) % Calcium (8.4-10.2) mg/dL Magnesium (1.6-2.3) mg/dL Total Bilirubin (0.2-1.3) mg/dL AST (17-59) U/L ALT (0-50) U/L Alkaline Phosphatase (38-126) U/L Creatine Kinase (55-170) U/L Troponin I (0.000-0.033) ng/mL Serum Total Protein (6.3-8.2) g/dL Albumin (3.5-5.0) g/dL Urine Opiates Level (NEGATIVE) Ur Methadone (NEGATIVE) Urine Barbiturates (NEGATIVE) Ur Phencyclidine (PCP) (NEGATIVE) Urine Amphetamine (NEGATIVE) U Benzodiazepine Level (NEGATIVE) Urine Cocaine (NEGATIVE) Urine Marijuana (THC) (NEGATIVE) Micro Results-Entire Visit: Accuchecks Date 04/11/24 Date 04/11/24 Date 04/10/24 Time 11:13 Time 08:05 Time 16:10 - Radiology Exams Ordered Rad Exams-Entire Visit: Radiology Procedures Category Date Time Status ECHO W/2D AND DOPPLER [US] Routine Exams 04/10/24 10:23 Taken HEAD WITHOUT CONTRAST [CT] Stat Exams 04/10/24 07:19 Completed MRI BRAIN W/O CONTRAST [MRI] Routine Exams 04/10/24 10:23 Completed VENOUS BILATERAL EXTREMITY [US] Routine Exams 04/10/24 11:14 Completed - Procedures and Test Procedures and Tests throughout Hospitalization: Therapy Orders & Screens 04/10/24 10:23 PT Eval & Treat ( Order) ONCE Reason for Eval:: possible TIA Diagnosis: seizure like activity 04/10/24 10:53 Smoking Cessation Education ONCE Comment: Diagnosis: seizure like activity Smoking Status: Current every day smoker How long have you smoked: 30 Approximately how many cigarettes per day: ppd Do you dip or chew tobacco: Yes Discharge Exam General Appearance: no apparent distress, alert Neurologic Exam: alert, oriented x 3, cooperative, normal mood/affect, nml cerebellar function, sensation nml, No motor deficits Eye Exam: PERRL, EOMI, eyes nml inspection Ears, Nose, Throat Exam: normal ENT inspection, pharynx normal, moist mucous membranes Neck Exam: normal inspection, non-tender, supple, full range of motion Respiratory Exam: normal breath sounds, lungs clear, No respiratory distress Cardiovascular Exam: regular rate/rhythm, normal heart sounds, edema (RLE) Gastrointestinal/Abdomen Exam: soft, No tenderness, No mass Male Genitalia Exam: deferred Rectal Exam: deferred Back Exam: normal inspection, normal range of motion, No CVA tenderness, No vertebral tenderness Extremity Exam: normal inspection, normal range of motion Skin Exam: normal color, warm, dry Final Diagnosis/Problem List - Final Discharge Diagnosis/Problem (1) Seizure-like activity Current Visit: Yes Status: Acute Code(s): R56.9 - UNSPECIFIED CONVULSIONS (2) Edema of both lower extremities Current Visit: Yes Status: Acute Code(s): R60.0 - LOCALIZED EDEMA (3) HTN (hypertension) Current Visit: Yes Status: Chronic Code(s): I10 - ESSENTIAL (PRIMARY) HYPERTENSION (4) Hyperlipidemia Current Visit: Yes Status: Chronic Code(s): E78.5 - HYPERLIPIDEMIA, UNSPECIFIED (5) Diabetes type 2 Current Visit: Yes Status: Chronic (6) Hyperglycemia Current Visit: Yes Status: Acute Code(s): R73.9 - HYPERGLYCEMIA, UNSPECIFIED (7) History of TIA (transient ischemic attack) Current Visit: Yes Status: Chronic Code(s): Z86.73 - PRSNL HX OF TIA (TIA), AND CEREB INFRC W/O RESID DEFICITS (8) Smoker Current Visit: Yes Status: Chronic Code(s): F17.200 - NICOTINE DEPENDENCE, UNSPECIFIED, UNCOMPLICATED (9) Obesity (BMI 30-39.9) Current Visit: Yes Status: Chronic Assessment & Plan: (1) Seizure-like activity Current Visit: Yes Status: Acute Assessment & Plan: - CK 771- NS @ 75ml/hr - CT head: Impression: 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 No acute intracranial abnormalities. - Neurology consult - MRI brain w/o contrast- reviewed- no acute concern - seizure precautions - tele - Neuro checks Q 4 - CBC, CMP reviewed - UDS - Echo - PT eval 04/11 - Echo results pending- will need to f/u with cardiology and have an echo with bubble study for further eval - holter monitor x7 days placed by RT as ordered - Neurology note reviewed: Stop ASA, start Eliquis BID 10mg x7 days then 5mg BID thereafter. keppra 500mg BID, no driving- f/u OP with neurology - no overnight seizures - CBC, CMP reviewed Code(s): R56.9 - UNSPECIFIED CONVULSIONS (2) Edema of both lower extremities Current Visit: Yes Status: Acute Assessment & Plan: - ongoing for 2 months per pt R> L - venous duplex BLLE- reviewed Comparison: None Right leg demonstrates near occluding thrombi in popliteal vein. Lesser degree nonoccluding thrombi in mid to distal femoral vein. No thrombus seen in the remaining deep venous vessels left and right leg including greater saphenous vein. Patent veins demonstrate normal compressibility and normal venous waveforms. Impression: 1. Nonoccluding DVT right leg. 2. Left leg negative for DVT. Code(s): R60.0 - LOCALIZED EDEMA (3) HTN (hypertension) Current Visit: Yes Status: Chronic Assessment & Plan: - BP stable - continue lisinopril Code(s): I10 - ESSENTIAL (PRIMARY) HYPERTENSION (4) Hyperlipidemia Current Visit: Yes Status: Chronic Assessment & Plan: - Continue statin Code(s): E78.5 - HYPERLIPIDEMIA, UNSPECIFIED (5) Diabetes type 2 Current Visit: Yes Status: Chronic Assessment & Plan: - Humalog s/s - accuchecks ac/hs - A1C 9.49- uncontrolled- f/u OP with PCP for better control- takes ozempic and reports he has been out of medication- will need filled by PCP - carb consistent diet 04/11 - 10 units humalog added with meals (6) Hyperglycemia Current Visit: Yes Status: Acute Assessment & Plan: - See above plan for type II DM Code(s): R73.9 - HYPERGLYCEMIA, UNSPECIFIED (7) History of TIA (transient ischemic attack) Current Visit: Yes Status: Chronic Assessment & Plan: - Continue statin and ASA 04/11 - stop ASA per neurology Code(s): Z86.73 - PRSNL HX OF TIA (TIA), AND CEREB INFRC W/O RESID DEFICITS (8) Smoker Current Visit: Yes Status: Chronic Assessment & Plan: - advised cessation - nicotine patch Code(s): F17.200 - NICOTINE DEPENDENCE, UNSPECIFIED, UNCOMPLICATED (9) Obesity (BMI 30-39.9) Current Visit: Yes Status: Chronic Assessment & Plan: - advised ADA diet and exercise control Code(s): E66.9 - OBESITY, UNSPECIFIED (10) Elevated CK Current Visit: Yes Status: Acute Assessment & Plan: - IVF ordered 12/17- 769 - IV lost at 3am and never restarted - Discussed need for IVF- pt refuses IV at this time and wants to d/c - encouraged pt to increase fluid intake and f/u with PCP this week for repeat labs - Discharge Discharge Date: 04/11/24 Disposition: Home, Self-Care Condition: Stable Prescriptions: New Apixaban [Eliquis] 10 mg PO BID 7 Days #14 Apixaban [Eliquis] 5 mg PO BID 30 Days #60 Levetiracetam [Keppra] 500 mg PO BID 30 Days #60 tablet Continue Lisinopril 20 mg [Zestril 20 MG] 20 mg PO DAILY Semaglutide [Ozempic] 0.25 mg SQ WEEKLY Atorvastatin Calcium 80 mg PO HS 30 Days #30 tablet Discontinued Aspirin [Aspirin EC] 81 mg PO DAILY Outpatient Orders: Holter Monitor Time Frame: 7 Days, Facility: [facility], Location: [facility] Additional Instructions: Do not drive. Stop daily aspirin. Increase fluid intake. Obtain repeat labs this week with PCP as CK is elevated. Obtain new prescription for Ozempic when you see PCP. No vigorous exercise since CK elevated. Follow up for appointments as scheduled Follow up with: FABIO MITCHELL [NON-STAFF PHY W/O PRIVILEGES] - Office will call patient LUCDELIACHRISSY A [CONSULTING PHYSICIAN] - 04/12/24 11:30 am (AT [facility]) WAYNE SHUKLA MD [Primary Care Provider] - 04/25/24 10:00 am CRISTAL CANCHOLA MD [NON-STAFF PHY W/O PRIVILEGES] - 04/17/24 9:30 am
[2024-04-11 11:55] VITALS: BP 116/58; PULSE 85
[2024-04-11] MEDS ORDERED: HUMALOG SQ SCH (12:00)
[2024-04-11] MEDS ORDERED: ELIQUIS 2.5 MG TABLET PO SCH (22:00)
== END 2024-04-11 12:26 | disposition home or self-care (01) ==
LOC: ED 06:07 → MED SURG 10:11
PROVIDERS: ADMIT Internal Medicine; ATTEND Internal Medicine
DX: R56.9 Unspecified convulsions (principal); R60.0 Localized edema; I10 Essential (primary) hypertension; E78.5 Hyperlipidemia, unspecified; E11.65 Type 2 diabetes mellitus with hyperglycemia; Z86.73 Personal history of transient ischemic attack (TIA), and cerebral infarction without residual deficits; F17.200 Nicotine dependence, unspecified, uncomplicated; E66.9 Obesity, unspecified; R79.89 Other specified abnormal findings of blood chemistry; Z79.899 Other long term (current) drug therapy
CPT/HCPCS: 36415; 70450; 70551; 80053; 80307; 81001; 82550; 82947; 83036; 83735; 84484; 85027; 93005; 93242; 93306; 93970; 97161; 99285; Q3014; J1650; J1817; A9270-GY